=== PATIENT | female | born 1960 | race Caucasian/White ===

== ENCOUNTER 2016-09-25 20:32 | Emergency (ER) | payer OTHER ==
--- NOTE | 2016-09-25 22:12 | ED ORDER SUMMARY ---
..... Patient: SUSANA MORGAN OrderSheet [facility] VisitID: [id number] [address] [place] [address] 56y, F Registration Date/Time: 09/25/2016 ORDER SHEET Weight: 77.1 kg (stated) Allergies: No Known Drug Allergy GENERAL ORDERS: MEDICATION ORDERS: Valium PO 5 mg (for muscle relaxation) (22:00 09/25/2016 [place] BLAND) (22:09 Anna Marie Beltran) Toradol IM 60 mg (NOW) (22:00 09/25/2016 Malika BLAND) (22:09 Anna Marie Beltran) IV FLUIDS: ORDER SHEET NOTES: [Electronically signed by Blayne Alexander R.N. (22:17 09/25/2016)] [Electronically signed by Shakira Her MD (17:58 09/27/2016)] [Electronically locked/signed by Blayne Alexander R.N. (22:17 09/25/2016)]
--- NOTE | 2016-09-25 22:12 | ED CLINICAL REPORT ---
Clinical Report - Physicians/Mid Levels [facility] [address] [place] [address] 09/25/2016 20:35 Patient: SUSANA MORGAN Time Seen: 21:00. Arrived- By private vehicle. Historian- patient. HISTORY OF PRESENT ILLNESS Chief Complaint: INJURY TO HEAD and INJURY TO NECK. Location of injuries- head and neck. The injury occurred yesterday. Fell. Occurred at school. ( Pt states she slipped on wet grass and her feet went out from under her. She fell backward, striking her head on the muddy ground. Pt states she felt the strain in her face and neck, but states she did not feel too bad until she awoke this morning. Pt states she felt sinus pressure, a headache, and a tightness going down both sides of her neck musculature. Pt took one of her Suboxone (for chronic pain), which helped a little, but incompletely.). The patient complains of moderate pain. The patient sustained a blow to the head and complains of neck pain. No loss of consciousness or seizure. Not dazed. REVIEW OF SYSTEMS No numbness, hearing loss, chest pain, weakness or loss of vision. No vomiting, difficulty breathing, bladder dysfunction, laceration or fever. She has had mild nausea. Has not recently been ill. All systems otherwise negative, except as recorded above. PAST HISTORY Problems: Tetanus Status. LNMP - Last Normal Menstrual Period. Back Pain. Hypertension. Hypercholesterolemia. Additional Surgeries: Bilateral rotator cuff repairs. Knee Surgery. Medications: sudafed 1 tab at 1999. Atorvastatin Calcium Oral 40 mg, daily. Benicar Oral 40 mg, daily. Suboxone Sublingual (Film 4-1 mg) 4mg at 1999. Allergies: No Known Drug Allergy. SOCIAL HISTORY Never smoker. Occasional alcohol use. No drug use. ADDITIONAL NOTES The nursing notes have been reviewed. PHYSICAL EXAM Vital Signs: 09/25/2016 20:55 BP: 151/84. HR: 84. RR: 18. O2 saturation: 99%. Temp: 98.2 F. Pain level now: 8/10. Have been reviewed. Appearance: Alert. No acute distress. Head: No swelling of head. Occiput: (Pt has mild tenderness over her occiput, generally.). Eyes: Pupils equal, round and reactive to light. EOM intact. ENT: No dental injury. Neck: No decreased ROM in the neck. No vertebral tenderness. (Pt has moderate tenderness throughout her bilateral trapezius distribution.). CVS: Heart sounds normal. Pulses normal. Respiratory: Breath sounds normal. Chest nontender. Back: No tenderness. ROM normal. Skin: Skin intact. Skin warm and dry. Normal skin color. Normal skin turgor. Extremities: Normal inspection. Extremities atraumatic. No lower extremity edema. Neuro: Oriented X 3. Mood/affect normal. Speech normal. No motor deficit. Normal gait. No sensory deficit. LABS, X-RAYS, AND EKG Pulse Oximetry: 09/25/2016 20:55 O2 saturation: 99%. (FIO2 - room air). Interpretation: normal. PROGRESS AND PROCEDURES Course of Care: I did d/w pt that I suspect she likely has a concussion and a cervical strain. I have d/w pt and her spouse the option of head CT and/or imaging of c-spine, though I suspect both of these will be negative. Pt states she prefers symptomatic treatment. She was given doses of Valium and Toradol (she declined narcotics, as she is on Suboxone for chronic pain). Patient counseled in person regarding the patient's stable condition, diagnosis and need for follow-up. Concerns were addressed. Old medical records reviewed. Disposition: Discharged. Condition: stable. CLINICAL IMPRESSION Concussion. No loss of consciousness. No memory loss, confusion, altered mental status, seizure, neurological deficit or coma. Acute cervical strain. INSTRUCTIONS Apply ice as needed and until better. Don't apply ice directly to skin and don't use while asleep. Warnings: GENERAL WARNINGS: Return or contact your physician immediately if your condition worsens or changes unexpectedly, if not improving as expected, or if other problems arise. Your Current Medications: CONTINUE TAKING THE FOLLOWING MEDICATIONS: Atorvastatin Calcium Oral : 40 mg daily. Benicar Oral : 40 mg daily. Suboxone Sublingual : Film 4-1 mg, 4mg at 1999. sudafed 1 tab at 2000*. Prescription Medications: Zofran (orally disintegrating tablets) 4 mg: take 1-2 orally every 6 hours as needed for nausea. Dispense five (5). No refill. Substitution is permissible. Methocarbamol 750 mg: take 2 orally every 6 hours as needed for muscle spasm or pain. Dispense fifteen (15). No refill. Follow-up: Follow up with your doctor in seven days if not better. Understanding of the discharge instructions verbalized by patient. (Electronically signed by Shakira Her MD 09/27/2016 17:58)
--- NOTE | 2016-09-25 22:12 | ED NURSING NOTES ---
Clinical Report - Nurses [facility] [address] [place] [address] 09/25/2016 20:35 Patient: SUSANA MORGAN TRIAGE Triage time 2054. Acuity: LEVEL 4. Chief Complaint: INJURY TO HEAD and (c/o pain to back of head and neck from fall on muddy ground yesterday). WILLOW COMA SCORE: [place] Coma Scale: 15- eyes open spontaneously (4); best verbal response- oriented x 4 (5); best motor response- obeys commands (6). --21:05 Rina Gallardo R.N. 20:55 09/25/16. BP: 151/84. HR: 84. RR: 18. O2 saturation: 99%. Temp: 98.2 F. Pain level now: 03/31. --21:05 Rina Gallardo R.N. Weight: 77.1 kg stated. Height/Length: 64 inches Per Patient. BMI: 29.2. --21:04 Rina Gallardo R.N. Medications Benicar Oral 40 mg, daily. Suboxone Sublingual (Film 4-1 mg) 4mg at 1999. --21:02 Rina Gallardo R.N. Atorvastatin Calcium Oral 40 mg, daily. --21:02 Rina Gallardo R.N. sudafed 1 tab at 1999. --21:03 Rina Gallardo R.N. Allergies No Known Drug Allergy. --21:02 Rina Gallardo R.N. History Arrived by private vehicle. Historian: patient. Accompanied by spouse. Primary physician (Howie). This occurred yesterday. Mechanism of injury: fell. She has had a headache and neck pain. No loss of consciousness. PAST MEDICAL HX: ( chronic back pain). SOCIAL HX: Never smoker. Occasional alcohol use. No drug use. --21:05 Rina Gallardo R.N. PROBLEMS: Back Pain. Hypertension. Hypercholesterolemia. --21:03 Rina Gallardo R.N. ADDITIONAL SURGERIES: Bilateral rotator cuff repairs. Knee Surgery. --21:03 Rina Gallardo R.N. Interventions ID band on patient. To treatment room. --21: Rina Gallardo R.N. NURSING PROGRESS NOTES 21:09/25/16. Cold pack applied. --21: Rina Gallardo R.N. 21:09/25/16. Patient gowned. Head of bed elevated. Reassurance given. Patient identifiers checked. Call light placed in reach. Side rails up. Bed placed in lowest position. Care transferred and report given (Blayne Nuñez EDRN). --21: Rina Gallardo R.N. 22:09/25/2016 Toradol (Ketorolac Tromethamine) IM 60 mg given. Given in the right deltoid. Allergies verified and confirmed 5 rights. --22: Blayne Alexander R.N. 22:09/25/2016 Valium (Diazepam) PO 5 mg given. Allergies verified, confirmed 5 rights and sedative warning given to the patient and patient's fire extinguisher repairer. --22: Blayne Alexander R.N. DISPOSITION / DISCHARGE Departure time: 2213. Condition at departure: improved. No learning barriers present. Discharge instructions provided and reviewed with the patient and spouse. Reviewed warnings. Reviewed medication(s). Treatments reviewed. Activity restrictions reviewed. Patient and spouse verbalized understanding. Written instructions provided in Yemeni. The patient was discharged by the physician delinquent tax collection assistant. She was discharged home and accompanied by spouse. She left the Emergency Department ambulatory and via private vehicle. Spouse driving. --22:17 Blayne Alexander R.N. 22:15 09/25/16. BP: 144/88. HR: 78. RR: 16. O2 saturation: 98%. Temp: 98 F. Pain level now 10/29. --22:17 Blayne Alexander R.N. Locked/Released at 09/25/2016 22:17 by Blayne Alexander R.N.
--- NOTE | 2016-09-25 22:12 | ED ORDER SUMMARY ---
..... Patient: SUSANA MORGAN OrderSheet [facility] VisitID: [id number] [address] [place] [address] 56y, F Registration Date/Time: 09/25/2016 ORDER SHEET Weight: 77.1 kg (stated) Allergies: No Known Drug Allergy GENERAL ORDERS: MEDICATION ORDERS: Valium PO 5 mg (for muscle relaxation) (22:00 09/25/2016 Malika BLAND) (22:09 Anna Marie Beltran) Toradol IM 60 mg (NOW) (22:00 09/25/2016 Malika BLAND) (22:09 Anna Marie Beltran) IV FLUIDS: ORDER SHEET NOTES: [Electronically signed by Blayne Alexander R.N. (22:17 09/25/2016)] [Electronically signed by Shakira Her MD (17:58 09/27/2016)] [Electronically locked/signed by Blayne Alexander R.N. (22:17 09/25/2016)]
--- NOTE | 2016-09-25 22:12 | ED NURSING NOTES ---
Clinical Report - Nurses [place] [facility] [address] [place] [address] 09/25/2016 20:35 Patient: SUSANA MORGAN TRIAGE Triage time 2054. Acuity: LEVEL 4. Chief Complaint: INJURY TO HEAD and (c/o pain to back of head and neck from fall on muddy ground yesterday). WILLOW COMA SCORE: [place] Coma Scale: 15- eyes open spontaneously (4); best verbal response- oriented x 4 (5); best motor response- obeys commands (6). --21:05 Rina Gallardo R.N. 20:55 09/25/16. BP: 151/84. HR: 84. RR: 18. O2 saturation: 99%. Temp: 98.2 F. Pain level now: 03/31. --21:05 Rina Gallardo R.N. Weight: 77.1 kg stated. Height/Length: 64 inches Per Patient. BMI: 29.2. --21:04 Rina Gallardo R.N. Medications Benicar Oral 40 mg, daily. Suboxone Sublingual (Film 4-1 mg) 4mg at 1999. --21:02 Rina Gallardo R.N. Atorvastatin Calcium Oral 40 mg, daily. --21:02 Rina Gallardo R.N. sudafed 1 tab at 1999. --21:03 Rina Gallardo R.N. Allergies No Known Drug Allergy. --21:02 Rina Gallardo R.N. History Arrived by private vehicle. Historian: patient. Accompanied by spouse. Primary physician (Howie). This occurred yesterday. Mechanism of injury: fell. She has had a headache and neck pain. No loss of consciousness. PAST MEDICAL HX: ( chronic back pain). SOCIAL HX: Never smoker. Occasional alcohol use. No drug use. --21:05 Rina Gallardo R.N. PROBLEMS: Back Pain. Hypertension. Hypercholesterolemia. --21:03 Rina Gallardo R.N. ADDITIONAL SURGERIES: Bilateral rotator cuff repairs. Knee Surgery. --21:03 Rina Gallardo R.N. Interventions ID band on patient. To treatment room. --21: Rina Gallardo R.N. NURSING PROGRESS NOTES 21:09/25/16. Cold pack applied. --21: Rina Gallardo R.N. 21:09/25/16. Patient gowned. Head of bed elevated. Reassurance given. Patient identifiers checked. Call light placed in reach. Side rails up. Bed placed in lowest position. Care transferred and report given (Blayne Nuñez EDRN). --21: Rina Gallardo R.N. 22:09/25/2016 Toradol (Ketorolac Tromethamine) IM 60 mg given. Given in the right deltoid. Allergies verified and confirmed 5 rights. --22: Blayne Alexander R.N. 22:09/25/2016 Valium (Diazepam) PO 5 mg given. Allergies verified, confirmed 5 rights and sedative warning given to the patient and patient's stem assembler. --22: Blayne Alexander R.N. DISPOSITION / DISCHARGE Departure time: 2213. Condition at departure: improved. No learning barriers present. Discharge instructions provided and reviewed with the patient and spouse. Reviewed warnings. Reviewed medication(s). Treatments reviewed. Activity restrictions reviewed. Patient and spouse verbalized understanding. Written instructions provided in [place]i. The patient was discharged by the physician clinical assistant professor. She was discharged home and accompanied by spouse. She left the Emergency Department ambulatory and via private vehicle. Spouse driving. --22:17 Blayne Alexander R.N. 22:15 09/25/16. BP: 144/88. HR: 78. RR: 16. O2 saturation: 98%. Temp: 98 F. Pain level now 10/29. --22:17 Blayne Alexander R.N. Locked/Released at 09/25/2016 22:17 by Blayne Alexander R.N.
--- NOTE | 2016-09-27 17:58 | ED DISCHARGE INSTRUCTIONS ---
Patient: SUSANA MORGAN General Instructions [facility] VisitID: [id number] [place] [address] 56y, F Registration Date/Time: 09/25/2016 Concussion. No loss of consciousness. No memory loss, confusion, altered mental status, seizure, neurological deficit or coma. Acute cervical strain. INSTRUCTIONS Apply ice as needed and until better. Don't apply ice directly to skin and don't use while asleep. Warnings: GENERAL WARNINGS: Return or contact your physician immediately if your condition worsens or changes unexpectedly, if not improving as expected, or if other problems arise. Your Current Medications: CONTINUE TAKING THE FOLLOWING MEDICATIONS: Atorvastatin Calcium Oral : 40 mg daily. Benicar Oral : 40 mg daily. Suboxone Sublingual : Film 4-1 mg, 4mg at 1999. sudafed 1 tab at 1999*. Prescription Medications: Zofran (orally disintegrating tablets) 4 mg: take 1-2 orally every 6 hours as needed for nausea. Dispense five (5). No refill. Substitution is permissible. Methocarbamol 750 mg: take 2 orally every 6 hours as needed for muscle spasm or pain. Dispense fifteen (15). No refill. Follow-up: Follow up with your doctor in seven days if not better. Understanding of the discharge instructions verbalized by patient. ADDITIONAL INFORMATION Neck Sprain Or Strain A sudden force that causes turning or bending of the neck (such as in a car accident) can stretch or tear muscles (strain) and ligaments (sprain) and cause neck pain. Sometimes neck pain occurs after a simple awkward movement. In either case, muscle spasm is commonly present and contributes to the pain. Unless you had a forceful physical injury (for example, a car accident or fall), X-rays are usually not ordered for the initial evaluation of neck pain. If pain continues and dose not respond to medical treatment, X-rays and other tests may be performed at a later time. Home care The following guidelines will help you care for your injury at home: You may feel more soreness and spasm the first few days after the injury. Reduce your activity level until symptoms begin to improve. When lying down, use a comfortable pillow that supports the head and keeps the spine in a neutral position. The position of the head should not be tilted forward or backward. Use ice packs (ice in a plastic bag, wrapped in a towel) to treat acute pain. Apply for 20 minutes every 24 hours during the first two days. Then, begin local heat (hot shower, hot bath or heating pad) andmassageto reduce muscle spasm. Some patients feel best alternating hot and cold treatments, or just staying with one method only. Do what feels the best to you and gives the most relief. You may use acetaminophen or ibuprofen to control pain, unless another pain medicine was prescribed.If you have chronic liver or kidney disease or ever had a stomach ulcer or GI bleeding, talk with your doctor before using these medicines. Follow-up care Follow up with your physician or this facility if your symptoms do not show signs of improvement. Physical therapy may be needed. If you had X-rays today, they didnt show any broken bones, breaks, or fractures. Sometimes fractures dont show up on the first X-ray. Bruises and sprains can sometimes hurt as much as a fracture. These injuries can take time to heal completely. If your symptoms dont improve or they get worse, talk with your doctor. You may need a repeat X-ray. When to seek medical care Get prompt medical attention if any of the following occur: Pain becomes worse or spreads into your arms Weakness or numbness in one or both arms Concussion (No Wake-Up) A concussion happens when you hit your head with enough force to shake up the brain. This may cause you to lose consciousness be "knocked out" - but not always. Depending on how hard you hit your head, it will take from a few hours up to a few days to get better. Sometimes symptoms may last a few months or longer. This is called post-concussion syndrome. At first, you may have a headache, nausea, vomiting, or dizziness. You may also have problems concentrating or remembering things. This is normal. Symptoms should get better as the hours and days go by. Symptoms that get worse could be a sign of a more serious injury. This might be a bruise or bleeding in the brain. Thats why its important to watch for the warning signs listed below. Home care Follow these tips to help care for yourself at home: During the next day (24 hours) someone must stay with you to check for the signs below. If your face or scalp swells, apply an ice pack for 20 minutes every 1 to 2 hours. Do this until the swelling starts to go down. You can make an ice pack by putting ice cubes in a plastic bag and wrapping the bag in a towel. for 20 minutes every 1-2 hours until the swelling starts to go down. You may use acetaminophen to control pain, unless another pain medicine was prescribed. If you have chronic liver or kidney disease, talk with your doctor before using these medicines. Also talk with your doctor if you ever had a stomach ulcer or GI bleeding. For the next 24 hours: Dont drink alcohol or take sedatives or medicines that make you sleepy. Dont drive or operate machinery. Avoid doing anything strenuous. Dont lift or strain. Dont return to sports or any activity that could cause you to hit your head until all symptoms are gone and you have been cleared by your doctor. A second head injury before fully recovering from the first one can lead to serious brain injury. Follow-up care Follow up with your doctor in 1 week, or as directed. Note: A radiologist will review any X-rays or CT scans that were taken. You will be told of any new findings that may affect your care. When to seek medical care Get prompt medical attention if any of these occur: Repeated vomiting Headache or dizziness that is severe or gets worse Unusual drowsiness, or unable to wake up as usual Confusion or change in behavior or speech, or memory loss Blurred vision Convulsion (seizure) Swelling on the scalp or face that gets worse Redness, warmth, or pus from the swollen area Fluid draining from or bleeding from the nose or ears You have been given the following additional information: Neck Sprain/Strain Concussion, No Wake-Up (Electronically signed by Shakira Her MD 09/27/2016 17:58)
--- NOTE | 2016-09-27 17:59 | ED MAR SUMMARY ---
..... Medication Administration Record [facility] [address] [place] [address] Patient: SUSANA MORGAN Visit ID: [id number] 56y, F Weight: 77.1 kg Height/Length: 64 in BMI: 29.2 ALLERGIES: No Known Drug Allergy Given 22:09/25/2016 Blayne Alexander R.N. Medication Administered: VALIUM [PO] (DIAZEPAM), Dose: 5 mg PO. Medication Ordered: Valium PO 5 mg (for muscle relaxation). Given 22:09/25/2016 Blayne Alexander R.N. Medication Administered: TORADOL [IM] (KETOROLAC TROMETHAMINE), Dose: 60 mg IM. Medication Ordered: Toradol IM 60 mg (NOW).
--- NOTE | 2016-09-27 17:59 | ED MAR SUMMARY ---
..... Medication Administration Record [facility] [address] [place] [address] Patient: SUSANA MORGAN Visit ID: [id number] 56y, F Weight: 77.1 kg Height/Length: 64 in BMI: 29.2 ALLERGIES: No Known Drug Allergy Given 22:09/25/2016 Blayne Alexander R.N. Medication Administered: VALIUM [PO] (DIAZEPAM), Dose: 5 mg PO. Medication Ordered: Valium PO 5 mg (for muscle relaxation). Given 22:09/25/2016 Blayne Alexander R.N. Medication Administered: TORADOL [IM] (KETOROLAC TROMETHAMINE), Dose: 60 mg IM. Medication Ordered: Toradol IM 60 mg (NOW).
--- NOTE | 2016-09-27 17:59 | ED MED RECONCILIATION SUMMARY ---
Patient: SUSANA MORGAN Medication Reconciliation Report [facility] VisitID: [id number] [place] [address] 56y, F Registration Date/Time: 09/25/2016 Weight: 77.1 kg Height/Length: 64 in. BMI: 29.2 ALLERGIES: No Known Drug Allergy The patient's Home Medications are listed below: CONTINUE TAKING THE FOLLOWING MEDICATIONS: Atorvastatin Calcium Oral 40 mg, daily Benicar Oral 40 mg, daily Suboxone Sublingual (4-1 mg) 4mg at 1999 sudafed 1 tab at 1999 The source(s) of the original Home Medication information: Not obtained. The following Medications were given to the patient in the Emergency Department: Toradol [IM] IM 60 mg, administered: 09/25/2016 10:09:00 PM Valium [PO] PO 5 mg, administered: 09/25/2016 10:09:00 PM The following Medications were prescribed to the patient: Zofran (orally disintegrating tablets) 4 mg: take 1-2 orally every 6 hours as needed for nausea. Dispense five (5). No refill. Substitution is permissible. -- Shakira Her MD Methocarbamol 750 mg: take 2 orally every 6 hours as needed for muscle spasm or pain. Dispense fifteen (15). No refill. -- Shakira Her MD
--- NOTE | 2016-09-27 17:59 | ED MED RECONCILIATION SUMMARY ---
Patient: SUSANA MORGAN Medication Reconciliation Report [facility] VisitID: [id number] [place] [address] 56y, F Registration Date/Time: 09/25/2016 Weight: 77.1 kg Height/Length: 64 in. BMI: 29.2 ALLERGIES: No Known Drug Allergy The patient's Home Medications are listed below: CONTINUE TAKING THE FOLLOWING MEDICATIONS: Atorvastatin Calcium Oral 40 mg, daily Benicar Oral 40 mg, daily Suboxone Sublingual (4-1 mg) 4mg at 1999 sudafed 1 tab at 1999 The source(s) of the original Home Medication information: Not obtained. The following Medications were given to the patient in the Emergency Department: Toradol [IM] IM 60 mg, administered: 09/25/2016 10:09:00 PM Valium [PO] PO 5 mg, administered: 09/25/2016 10:09:00 PM The following Medications were prescribed to the patient: Zofran (orally disintegrating tablets) 4 mg: take 1-2 orally every 6 hours as needed for nausea. Dispense five (5). No refill. Substitution is permissible. -- Shakira Her MD Methocarbamol 750 mg: take 2 orally every 6 hours as needed for muscle spasm or pain. Dispense fifteen (15). No refill. -- Shakira Her MD
== END 2016-09-25 22:13 | disposition home or self-care (01) ==
LOC: ED SRH 20:32
DX: S06.0X0A Concussion without loss of consciousness, initial encounter (principal); S16.1XXA Strain of muscle, fascia and tendon at neck level, initial encounter; W01.0XXA Fall on same level from slipping, tripping and stumbling without subsequent striking against object, initial encounter; Y93.9 Activity, unspecified; Y92.219 Unspecified school as the place of occurrence of the external cause; Y99.9 Unspecified external cause status; I10 Essential (primary) hypertension; Z79.891 Long term (current) use of opiate analgesic; Z79.899 Other long term (current) drug therapy

== ENCOUNTER 2017-01-10 12:42 | Outpatient (CLI) | payer BC ==
--- NOTE | 2017-01-12 16:46 | DIAGNOSTIC IMAGING REPORT ---
PROCEDURE: NM CARDIAC STRESS TEST INDICATION: Chest pain TECHNIQUE: Please see separately dictated stress test report for details of that portion of the study. This is a pharmacologic study. 9 mCi technetium 99m labeled sestamibi used for rest imaging 30 mCi for stress imaging. COMPARISON: None FINDINGS: SPECT imaging shows normal perfusion. Some stress score is zero. Gated SPECT imaging shows ejection fraction 62%, end-diastolic volume 94 ml, end-systolic volume 35 ml and normal wall thickening wall motion. T.i.d. score is 1.03. There is no transient ischemic dilatation. IMPRESSION: No infarct or ischemia Normal left ventricular ejection fraction at 62% Normal left ventricular size, wall thickening and wall motion. Low risk study.
== END 2017-01-10 23:00 ==
LOC: NM SRH 12:42
PROC: 4A02XM4 Measurement of Cardiac Total Activity, External Approach (ICD-10-PCS; principal; 2017-01-10)
PROC: 3E073KZ Introduction of Other Diagnostic Substance into Coronary Artery, Percutaneous Approach (ICD-10-PCS; principal; 2017-01-10)
DX: R07.9 Chest pain, unspecified (principal); I10 Essential (primary) hypertension